=== PATIENT | female | born 1975 | race Caucasian/White ===

== ENCOUNTER 2016-06-28 11:28 | Emergency (ER) | payer MEDICAID, OTHER ==
[~2016-06-28] VITALS: Ht 160 cm; Wt 56.5 kg
[2016-06-28 11:29] VITALS: BP 170/88; PULSE 105; RESP 24; TEMP 98.5; O2SAT 100
--- NOTE | 2016-06-28 11:46 | PD ---
HPI Chief Complaint: Chest Pain Time Seen by Provider: 11:42 Travel History International Travel<30 days: No Contact w/Intl Traveler<30days: No Traveled to known affect area: No PFSH Past Medical History Cardiovascular Problems: Yes Allergies-Medications (Allergen,Severity, Reaction): Coded Allergies: Codeine (Verified Allergy, Severe, Itching, 06/28/16) Data Data Last Documented VS Vital Signs Date Time Temp Pulse Resp B/P Pulse Ox O2 Delivery O2 Flow Rate FiO2 06/28/16 11:29 98.5 105 24 170/88 100 Room Air Anthony Balderas Jun 28, 2016 11:46
[2016-06-28] MEDS ORDERED: BUPR100CR PO (12:02)
[2016-06-28] MEDS ORDERED: TOPA100T11 PO (12:03)
[2016-06-28] MEDS ORDERED: TOPA25TA8 PO (12:03)
[2016-06-28] MEDS ORDERED: SODIUM CHLORIDE 0.9% FLUSH 10 ML FLUSH IVF PRN (12:30)
[2016-06-28 12:51] LABS: AUTOMATED NEUTROPHIL # 1.4 TH/MM3 (1.8-7.7); EOSINOPHIL # 0.1 TH/MM3 (0-0.4); EOSINOPHIL % 3.8 % (0.0-4.0); HEMATOCRIT 38.2 % (35.0-46.0); HEMO FLAGS DIFF FINAL; LYMPH % 46.2 % (9.0-44.0); LYMPHOCYTE # 1.7 TH/MM3 (1.0-4.8); MEAN CELL VOLUME 92.8 FL (80.0-100.0); MEAN CORPUSCULAR HGB CONC 34.4 % (32.0-36.0); MONO % 12.6 % (0.0-8.0); NEUT % 36.4 % (16.0-70.0); PLATELET COUNT 153 TH/MM3 (150-450); RED BLOOD COUNT 4.11 MIL/MM3 (4.00-5.30); WHITE BLOOD COUNT 3.7 TH/MM3 (4.0-11.0)
[2016-06-28 13:14] LABS: ALT (GPT) 22 U/L (10-53); ANION GAP 11 MEQ/L (5-15); AST (GOT) 14 U/L (15-37); BICARBONATE 20.4 MEQ/L (21.0-32.0); BLOOD UREA NITROGEN 21 MG/DL (7-18); CHLORIDE 108 MEQ/L (98-107); GLOMERULAR FILTRATION RATE 63 ML/MIN (>89); MAGNESIUM 2.1 MG/DL (1.5-2.5); POTASSIUM 3.5 MEQ/L (3.5-5.1); SODIUM (NA) 139 MEQ/L (136-145)
[2016-06-28 13:15] VITALS: BP 136/73; PULSE 70; RESP 15; O2SAT 97
--- NOTE | 2016-06-28 13:15 | RADRPT ---
EXAM DATE/TIME: 06/28/2016 12:45 [facility] COMPARISON: No previous studies available for comparison. INDICATIONS : Chest pain on and off for the past two months. MEDICAL HISTORY : None. SURGICAL HISTORY : CABG. ICD. ENCOUNTER: Initial ACUITY: 2 months PAIN SCORE: 10/10 LOCATION: Bilateral chest FINDINGS: The lungs are clear without infiltrate, nodule, or mass. There is no appreciable pleural effusion fo r technique. Heart and mediastinum are unremarkable. There is evidence for prior median sternotomy. Left subclavian pacer wire is present with tip in the right ventricle. IMPRESSION: No acute cardiopulmonary disease. Lio Boyle MD on June 28, 2016 at 13:13 Board Certified Radiologist. This report was verified electronically.
[2016-06-28 13:28] LABS: ALKALINE PHOSPHATASE 68 U/L (45-117); BETA HCG QUANT LESS THAN 1 MIU/ML (0-5); TOTAL BILIRUBIN ADULT 0.5 MG/DL (0.2-1.0)
--- NOTE | 2016-06-28 13:46 | PD ---
HPI Chief Complaint: Chest Pain Time Seen by Provider: 11:41 Travel History International Travel<30 days: No Contact w/Intl Traveler<30days: No Traveled to known affect area: No History of Present Illness HPI Is a 41-year-old woman who presents to the emergency department complaining of chest pain. Patient has a complicated medical history of recent diagnosis of hypertrophic cardiomyopathy diagnosed at age 39, status post surgical treatment with sternotomy and surgical treatment for the hypertrophic cardiomyopathy. She states she since that time is gotten chest pain on a daily basis. States she gets it when she gets emotionally upset, or if she exerts herself. Over the past 2 months is been gradually worse. Today she had an episode that lasted longer is more severe than she's had in the past. She states that she had this same pain, radiating up into her jaw, with pain along the arteries in her neck. She appears a little bit anxious. States it lasted for a minute or so which is unusual for her. She otherwise has been in her usual state of health. No other complaints. History Past Medical History Narrative Medical Hypertrophic cardiomyopathy, status post surgical repair. History of AICD. History of tobacco use, trying to quit, on Wellbutrin, smokes a half pack per day Frequent headaches LMP: 06/24/16 : 2 Para: 2 Social History Alcohol Use: No Tobacco Use: Yes (1/2 ppd) Allergies-Medications (Allergen,Severity, Reaction): Coded Allergies: Codeine (Verified Allergy, Severe, Itching, 06/28/16) Reported Meds & Prescriptions Reported Meds & Active Scripts Active Reported Topamax (Topiramate) 100 Mg Tab 100 Mg PO BID Wellbutrin SR 12 HR (Bupropion HCl) 100 Mg Tab 100 Mg PO Q12HR Review of Systems Except as stated in HPI: all other systems reviewed are Neg Physical Exam Narrative GENERAL: Well-appearing 41-year-old woman, no acute distress. SKIN: Focused skin assessment warm/dry. HEAD: Atraumatic. Normocephalic. CARDIOVASCULAR: Regular rate and rhythm. No murmur appreciated. RESPIRATORY: No accessory muscle use. Clear to auscultation. Breath sounds equal bilaterally. GASTROINTESTINAL: Abdomen soft, non-tender, nondistended. Hepatic and splenic margins not palpable. MUSCULOSKELETAL: No obvious deformities. No edema. NEUROLOGICAL: Awake and alert. No obvious cranial nerve deficits. Motor grossly within normal limits. Normal speech. PSYCHIATRIC: Appropriate mood and affect; insight and judgment normal. Data Data Last Documented VS Vital Signs Date Time Temp Pulse Resp B/P Pulse Ox O2 Delivery O2 Flow Rate FiO2 06/28/16 13:15 70 15 136/73 97 06/28/16 12:10 Nasal Cannula 2 06/28/16 11:29 98.5 Orders Complete Blood Count With Diff (06/28/16 12:23) Comprehensive Metabolic Panel (06/28/16 12:23) Magnesium (Mg) (06/28/16 12:23) Troponin I (06/28/16 12:23) Chest, Single Ap (06/28/16 12:23) Ecg Monitoring (06/28/16 12:23) Bilateral Bp Monitoring (06/28/16 12:23) Iv Access Insert/Monitor (06/28/16 12:23) Oximetry (06/28/16 12:23) Oxygen Administration (06/28/16 12:23) Sodium Chloride 0.9% Flush (Ns Flush) (06/28/16 12:30) Beta Hcg (Quant/Titer) (06/28/16 12:23) Troponin I (06/28/16 15:00) B-Type Natriuretic Peptide (06/28/16 13:49) Electrocardiogram (06/28/16 ) Labs Laboratory Tests Test 06/28/16 06/28/16 12:15 15:55 White Blood Count 3.7 TH/MM3 Red Blood Count 4.11 MIL/MM3 Hemoglobin 13.1 GM/DL Hematocrit 38.2 % Mean Corpuscular Volume 92.8 FL Mean Corpuscular Hemoglobin 32.0 PG Mean Corpuscular Hemoglobin 34.4 % Concent Red Cell Distribution Width 13.0 % Platelet Count 153 TH/MM3 Mean Platelet Volume 10.8 FL Neutrophils (%) (Auto) 36.4 % Lymphocytes (%) (Auto) 46.2 % Monocytes (%) (Auto) 12.6 % Eosinophils (%) (Auto) 3.8 % Basophils (%) (Auto) 1.0 % Neutrophils # (Auto) 1.4 TH/MM3 Lymphocytes # (Auto) 1.7 TH/MM3 Monocytes # (Auto) 0.5 TH/MM3 Eosinophils # (Auto) 0.1 TH/MM3 Basophils # (Auto) 0.0 TH/MM3 CBC Comment DIFF FINAL Differential Comment Sodium Level 139 MEQ/L Potassium Level 3.5 MEQ/L Chloride Level 108 MEQ/L Carbon Dioxide Level 20.4 MEQ/L Anion Gap 11 MEQ/L Blood Urea Nitrogen 21 MG/DL Creatinine 0.97 MG/DL Estimat Glomerular Filtration 63 ML/MIN Rate Random Glucose 83 MG/DL Calcium Level 9.0 MG/DL Magnesium Level 2.1 MG/DL Total Bilirubin 0.5 MG/DL Aspartate Amino Transf 14 U/L (AST/SGOT) Alanine Aminotransferase 22 U/L (ALT/SGPT) Alkaline Phosphatase 68 U/L Troponin I LESS THAN 0.02 LESS THAN 0.02 NG/ML NG/ML B-Type Natriuretic Peptide 103 PG/ML Total Protein 7.6 GM/DL Albumin 3.9 GM/DL Human Chorionic Gonadotropin, LESS THAN 1 Quant MIU/ML MDM Medical Decision Making Medical Screen Exam Complete: Yes Emergency Medical Condition: Yes Interpretation(s) My review of EKG: Sinus rhythm at a rate of 80, left bundle branch block, no definite evidence of acute ischemia. LABS: CBC generally unremarkable. CMP generally unremarkable. BUN to bit elevated. Troponin negative HCG negative Chest x-ray: No acute cardiopulmonary disease. Differential Diagnosis Chest pain, chest wall pain, ACS, anxiety, PE, dissection, other Narrative Course Medical decision making This a 41-year-old woman who presents to the emergency department complaining of chest pain. States she has daily chest pain and this was worse in her typical. Her history is of hypertrophic cardiac myopathy status post surgical repair. She looks generally well now. She has no history of coronary artery disease. We'll check labs, x-ray, EKG. Likely repeat troponin then outpatient follow-up with her [employer] recruiter in [place]. Diagnosis Primary Impression: Chest pain Additional Instructions: Continue current medications. Follow-up with your [employer] recruiter in the next 2-4 days. Return to the emergency department for any worsening chest pain, trouble breathing, or any other new or worsening symptoms. Med/Other Pt SpecificInfo: No Change to Meds Disposition: 01 DISCHARGE HOME Condition: Stable Sylvain Falcon MD Jun 28, 2016 13:46
[2016-06-28 14:15] VITALS: BP 111/57; PULSE 62; RESP 15; O2SAT 99
--- NOTE | 2016-06-28 14:49 | EKG ---
Date Performed: 06/28/2016 Time Performed: 11:48:25 PTAGE: 41 years EKG: Sinus rhythm LEFT ATRIAL ENLARGEMENT MARKED LEFT AXIS DEVIATION LEFT BUNDLE BRANCH BLOCK ABNORMAL ECG NO PREVIOUS TRACING DOCTOR: Michael Mendez Interpretating Date/Time 06/28/2016 14:47:47
[2016-06-28 15:15] VITALS: BP 110/56; PULSE 68; RESP 16; O2SAT 99
[2016-06-28 16:00] VITALS: BP 112/59; PULSE 66; RESP 16; O2SAT 99
== END 2016-06-28 17:02 | disposition home or self-care (01) ==
LOC: NEPC 11:28
DX: R07.9 Chest pain, unspecified (principal); R94.31 Abnormal electrocardiogram [ECG] [EKG]; I42.2 Other hypertrophic cardiomyopathy; F17.210 Nicotine dependence, cigarettes, uncomplicated; Z95.810 Presence of automatic (implantable) cardiac defibrillator
CPT/HCPCS: 71010; 80053; 83735; 83880; 84484; 84702; 85025; 93005